=== PATIENT | female | born 1980 | race Caucasian/White ===

== ENCOUNTER 2019-02-15 08:26 | Inpatient (IN) | payer OTHER ==
[~2019-02-15] VITALS: Ht 162.6 cm; Wt 55.6 kg
[~2019-02-15 08:26] MED LIST: LAMO200T PO; RISP4 PO
[2019-02-15] MEDS ORDERED: PROZ10 PO (08:39)
[2019-02-15 09:57] LABS: BASOPHILS % (AUTO) 0.4 % (0.0-2.0); EOSINOPHILS % (AUTO) 0.1 % (1.0-6.0); HEMOGLOBIN 13.9 g/dL (12.0-16.0); LYMPHOCYTES # (AUTO) 0.9 K/uL (1.0-4.8); LYMPHOCYTES % (AUTO) 13.4 % (22.0-44.0); MEAN CORPUSCULAR HEMOGLOBIN 31.5 pg (26.0-34.0); MEAN CORPUSCULAR HGB CONC 34.7 G/dL (31.0-37.0); MEAN CORPUSCULAR VOLUME 91 fL (80-100); MONOCYTES # (AUTO) 0.4 K/uL (0.1-1.0); MONOCYTES % (AUTO) 6.3 % (2.0-9.0); NEUTROPHILS # (AUTO) 5.4 K/uL (1.8-7.7); NEUTROPHILS % (AUTO) 79.8 % (40.0-70.0); PLATELET COUNT (AUTO) 295 K/uL (150-450)
[2019-02-15] MEDS ORDERED: ZOLPIDEM TARTRATE 10 MG TABLET PO PRN (10:00)
[2019-02-15 10:10] LABS: ANION GAP 12 mmol/L (8-16); CALCIUM, TOTAL 9.5 mg/dL (8.8-10.5); CARBON DIOXIDE 24 mmol/L (22-29); CHLORIDE 102 mmol/L (98-107); CREATININE 1.06 mg/dL (0.60-1.30); GLOMERULAR FILTR. RATE CALC 58 mL/min (>60); GLUCOSE,RANDOM 127 mg/dL (70-110); POTASSIUM 3.1 mmol/L (3.5-5.1); SODIUM SERUM 138 mmol/L (136-145); UREA NITROGEN, BLOOD 7 mg/dL (7-18)
[2019-02-15 10:16] LABS: ALANINE AMINOTRANSFERASE 11 U/L (12-78); ALBUMIN 4.6 g/dL (3.4-5.0); ALKALINE PHOSPHATASE 50 U/L (46-116); ASPARTATE AMINOTRANSFERASE 13 U/L (15-37); BILIRUBIN,TOTAL 0.6 mg/dL (0.1-1.0); TOTAL PROTEIN, SERUM 7.8 g/dL (6.4-8.2)
[2019-02-15 11:32] VITALS: BP 129/85
[2019-02-15 11:57] VITALS: BP 129/88
[2019-02-15] MEDS ORDERED: ACETAMINOPHEN 325 MG TABLET PO PRN (13:30)
[2019-02-15] MEDS ORDERED: TUBERCULIN, PURIFIED PROTEIN DERIVATIVE 5 TU/0.1 ML SYRINGE ID ONE (13:30)
[2019-02-15] MEDS ORDERED: GuaiFENesin/D-METHORPHAN [SUGAR-FREE] 200-20MG/10 ML SYRUP UDCUP PO PRN (13:30)
[2019-02-15] MEDS ORDERED: RisperiDONE 1 MG TABLET PO PRN (13:30)
[2019-02-15] MEDS ORDERED: MAG HYDROX/AL HYDROX/SIMETH ES 30 ML SUSPENSION UDCUP PO PRN (13:30)
[2019-02-15] MEDS ORDERED: LOPERAMIDE HCL 2 MG CAPSULE PO PRN (13:30)
[2019-02-15] MEDS ORDERED: HydrOXYzine PAMOATE 50 MG CAPSULE PO PRN (13:30)
[2019-02-15] MEDS ORDERED: PROMETHAZINE HCL 25 MG TABLET PO PRN (13:30)
[2019-02-15] MEDS ORDERED: MAGNESIUM HYDROXIDE SUSPENSION 30 ML UDCUP PO PRN (13:30)
[2019-02-15 14:32] LABS: HCG,QUANTITATIVE < 1 mIU/mL (0-6)
[2019-02-15 17:00] VITALS: BP 141/95
[2019-02-15] MEDS: THIAMINE HCL 100 MG TABLET PO SCH (17:24)
[2019-02-15] MEDS: LITHIUM CARBONATE 600 MG CAPSULE PO SCH (20:16)
[2019-02-15] MEDS ORDERED: RisperiDONE 3 MG TABLET PO SCH (21:00)
[2019-02-16 05:51] LABS: HEMOGLOBIN A1C 5.2 % (4.5-6.2)
[2019-02-16 06:11] LABS: CHOL/HDL RATIO 2.5 (3.9-5.7); FREE T4 (FREE THYROXINE) 1.32 ng/dL (0.76-1.46); THYROID STIMULATING HORMONE 0.49 uIU/mL (0.36-3.74)
[2019-02-16] MEDS: FOLIC ACID 1 MG TABLET PO SCH (09:16)
[2019-02-16] MEDS: THIAMINE HCL 100 MG TABLET PO SCH ×2 (09:16→16:33)
[2019-02-16] MEDS: MULTIVITAMINS WITH MINERALS, THERAPEUTIC TABLET PO SCH (09:16)
[2019-02-16 09:50] VITALS: BP 149/89
[2019-02-16] MEDS: LISINOPRIL 20 MG TABLET PO SCH (14:25)
[2019-02-16] MEDS: LORazepam 2 MG TABLET PO PRN (16:33)
[2019-02-16 20:00] VITALS: BP 137/76
[2019-02-16] MEDS: LITHIUM CARBONATE 600 MG CAPSULE PO SCH (20:34)
[2019-02-17 01:32] VITALS: BP 114/79
[2019-02-17] MEDS: LORazepam 2 MG TABLET PO PRN ×2 (01:33→08:44)
[2019-02-17 05:59] LABS: LITHIUM 0.61 mmol/L (0.60-1.20)
[2019-02-17 06:05] LABS: HEMOGLOBIN A1C 5.3 % (4.5-6.2)
[2019-02-17] MEDS: QUEtiapine FUMARATE 100 MG TABLET PO PRN (08:42)
[2019-02-17] MEDS: LISINOPRIL 20 MG TABLET PO SCH (08:43)
[2019-02-17] MEDS: MULTIVITAMINS WITH MINERALS, THERAPEUTIC TABLET PO SCH (08:43)
[2019-02-17] MEDS: FOLIC ACID 1 MG TABLET PO SCH (08:43)
[2019-02-17] MEDS: THIAMINE HCL 100 MG TABLET PO SCH ×2 (08:43→17:07)
[2019-02-17 09:15] VITALS: BP 138/80
[2019-02-17 16:20] VITALS: BP 106/73
[2019-02-17] MEDS: LITHIUM CARBONATE 300 MG TABLET PO SCH (20:51)
[2019-02-17] MEDS: QUEtiapine FUMARATE 200 MG TABLET PO SCH (20:52)
[2019-02-18] VITALS: BP 110/68
[2019-02-18] MEDS: LORazepam 2 MG TABLET PO PRN ×2 (00:21→16:39)
[2019-02-18 08:50] VITALS: BP 126/76
[2019-02-18] MEDS: FOLIC ACID 1 MG TABLET PO SCH (10:03)
[2019-02-18] MEDS: MULTIVITAMINS WITH MINERALS, THERAPEUTIC TABLET PO SCH (10:03)
[2019-02-18] MEDS: THIAMINE HCL 100 MG TABLET PO SCH ×2 (10:03→16:34)
[2019-02-18] MEDS: QUEtiapine FUMARATE 100 MG TABLET PO PRN (10:03)
[2019-02-18] MEDS: LISINOPRIL 20 MG TABLET PO SCH (10:03)
[2019-02-18 16:55] VITALS: BP 106/71
[2019-02-18] MEDS: LITHIUM CARBONATE 300 MG TABLET PO SCH (20:22)
[2019-02-18] MEDS: QUEtiapine FUMARATE 200 MG TABLET PO SCH (20:22)
[2019-02-19 05:00] VITALS: BP 117/77
[2019-02-19] MEDS: MULTIVITAMINS WITH MINERALS, THERAPEUTIC TABLET PO SCH (08:38)
[2019-02-19] MEDS: FOLIC ACID 1 MG TABLET PO SCH (08:38)
[2019-02-19] MEDS: THIAMINE HCL 100 MG TABLET PO SCH ×2 (08:38→16:51)
[2019-02-19] MEDS: LISINOPRIL 20 MG TABLET PO SCH (08:39)
[2019-02-19 09:07] VITALS: BP 117/87
[2019-02-19] MEDS: QUEtiapine FUMARATE 100 MG TABLET PO PRN (11:10)
[2019-02-19] MEDS: LORazepam 2 MG TABLET PO PRN (11:10)
[2019-02-19] MEDS: LITHIUM CARBONATE 300 MG TABLET PO SCH (21:12)
[2019-02-19] MEDS: QUEtiapine FUMARATE 200 MG TABLET PO SCH (21:12)
[2019-02-19 23:11] VITALS: BP 121/89
[2019-02-20] MEDS: MULTIVITAMINS WITH MINERALS, THERAPEUTIC TABLET PO SCH (09:12)
[2019-02-20] MEDS: FOLIC ACID 1 MG TABLET PO SCH (09:12)
[2019-02-20] MEDS: LISINOPRIL 20 MG TABLET PO SCH (09:12)
[2019-02-20] MEDS: THIAMINE HCL 100 MG TABLET PO SCH ×2 (09:13→16:27)
[2019-02-20 12:47] VITALS: BP 107/66
[2019-02-20 16:14] VITALS: BP 117/77
[2019-02-20] MEDS ORDERED: QUET200T29 PO (18:39)
[2019-02-20] MEDS ORDERED: LITH600 PO (20:04)
[2019-02-20] MEDS ORDERED: QUET300T2 PO (20:05)
[2019-02-20] MEDS ORDERED: LITHIUM CARBONATE 300 MG TABLET PO SCH ×2 (21:00)
[2019-02-20] MEDS ORDERED: QUEtiapine FUMARATE 200 MG TABLET PO SCH (21:00)
[2019-02-21] MEDS: FOLIC ACID 1 MG TABLET PO SCH (09:43)
[2019-02-21] MEDS: MULTIVITAMINS WITH MINERALS, THERAPEUTIC TABLET PO SCH (09:43)
[2019-02-21] MEDS: LISINOPRIL 20 MG TABLET PO SCH (09:43)
[2019-02-21] MEDS: THIAMINE HCL 100 MG TABLET PO SCH (09:43)
[2019-02-21] MEDS ORDERED: LISI-662 PO (10:40)
[2019-02-21] MEDS ORDERED: LITH300T PO (10:48)
== END 2019-02-21 12:45 | disposition home or self-care (01) | DRG 885 ==
LOC: EMS 08:27 → 3EX 10:44
PROVIDERS: ADMIT Psychiatry & Neurology Psychiatry; ATTEND Psychiatry & Neurology Psychiatry
DX: F31.2 Bipolar disorder, current episode manic severe with psychotic features (principal); G47.00 Insomnia, unspecified; I10 Essential (primary) hypertension; Z91.19 Patient's noncompliance with other medical treatment and regimen
CPT/HCPCS: 83036; 84439; 84443; 86592; 93005; G0378; G0480